=== PATIENT | male | born 1935 | race Caucasian/White ===

== ENCOUNTER → 2023-10-30 09:27 | Outpatient (REF) | payer OTHER, SELFPAY | LOC: HWRCS 09:27 | PROVIDERS: ATTENDING PHYSICIAN Internal Medicine Cardiovascular Disease; FAMILY PHYSICIAN Internal Medicine Geriatric Medicine | DX: R06.02 Shortness of breath (principal) | CPT/HCPCS: 93306 ==

== ENCOUNTER → 2023-11-07 11:01 | Outpatient (REF) | payer OTHER, SELFPAY | LOC: RAD 11:01 | PROVIDERS: ATTENDING PHYSICIAN Internal Medicine Geriatric Medicine; FAMILY PHYSICIAN Internal Medicine Geriatric Medicine; REFERRING PHYSICIAN Surgery Vascular Surgery | DX: G25.81 Restless legs syndrome (principal) | CPT/HCPCS: 93922; 93925 ==

== ENCOUNTER → 2024-08-05 09:25 | Outpatient (REF) | payer OTHER, SELFPAY | LOC: HWRCS 09:25 | PROVIDERS: ATTENDING PHYSICIAN Internal Medicine Cardiovascular Disease; FAMILY PHYSICIAN Internal Medicine Geriatric Medicine | DX: R06.02 Shortness of breath (principal); I31.39 Other pericardial effusion (noninflammatory) | CPT/HCPCS: 93306 ==

== ENCOUNTER → 2024-08-25 14:04 | Outpatient (REF) | payer OTHER, SELFPAY | LOC: HWRAD 14:04 | PROVIDERS: ATTENDING PHYSICIAN Specialist; FAMILY PHYSICIAN Internal Medicine Geriatric Medicine | DX: M25.511 Pain in right shoulder (principal) | CPT/HCPCS: 73200 ==

== ENCOUNTER 2024-08-27 06:11 | Day surgery (SDC) | payer OTHER, SELFPAY ==
--- NOTE | 2024-08-10 13:14 | CM ---
CM reviewed medical records. CM spoke with patient via phone. Patient confirmed demographics. Patient lives independently at [facility] with . Patient has had a history of VN 'many years ago' for home IV antibiotics. Patient has been to
outpatient PT at [facility] for vertigo. Patient plans to use this facility post operatively. Patient is active with his PCP. Patient plans to use [facility] at [facility] for medication services.
Patient will have the support of his and children post operatively.
PLAN: home with family.
[2024-08-17 11:24] LABS: Hematocrit 30.8 % (39.0-52.0); Hemoglobin 10.3 g/dL (13.0-18.0); Mean Corp Hgb Conc. 33.4 g/dL (33.0-37.0); Mean Corpuscular Hgb 33.7 pg (27.0-31.0); Mean Corpuscular Volume 100.7 fL (80.0-94.0); Mean Platelet Volume 9.8 fL (7.4-10.4); Platelet Count 162 10^3/uL (130-400); Red Blood Cell Count 3.06 10^6/uL (4.70-6.10); White Blood Cell Count 4.9 10^3/uL (4.8-10.8)
[2024-08-17 12:11] LABS: ALT (SGPT) 19 U/L (0-50); AST (SGOT) 17 U/L (17-59); Albumin 3.5 g/dl (3.5-5.0); Alkaline Phosphatase 43 U/L (38-126); Blood Urea Nitrogen 24 mg/dl (9-20); Calcium 8.6 mg/dl (8.4-10.2); Carbon Dioxide 23 mmol/L (22-30); Chloride 109 mmol/L (98-107); Glucose 106 mg/dl (70-99); Potassium 4.5 mmol/L (3.5-5.1); Sodium 137 mmol/L (135-145); Total Bilirubin 0.5 mg/dl (0.2-1.3); Total Protein 5.7 g/dl (6.3-8.2); eGFR > 60.00
[2024-08-17 12:24] LABS: Glycohemoglobin (HgbA1c) 5.9 % (4.0-5.6)
[2024-08-17 13:12] LABS: Erythrocyte Sed Rate 16 mm/hour (0-20)
[2024-08-17 13:29] LABS: Iron 103 ug/dl (49-181)
[2024-08-17 13:38] LABS: Percent Saturation 38 % (20-50); Total Iron Binding Capacity 268 ug/dl (261-462)
[2024-08-17 14:09] VITALS: BMI 27.6
[2024-08-17 14:29] LABS: Folate > 20.0 ng/ml (2.76-20); Vitamin B12 365 pg/ml (239-931)
[2024-08-27] VITALS (10 sets, daily range): BP systolic 108–141; BP diastolic 55–93; BMI 27.6
[2024-08-27] MEDS: TYLENOL 1000 MG PO (07:46)
[2024-08-27] MEDS: CELEBREX 200 MG PO (07:47)
[2024-08-27] MEDS: NORMOSOL-R/PLASMALYTE-A 1000 IV (07:47)
[2024-08-27] MEDS: ANCEF 5 IV (13:01)
== END 2024-08-27 13:15 | disposition home or self-care (01) ==
LOC: SDS 06:11
PROVIDERS: ATTENDING PHYSICIAN Specialist; FAMILY PHYSICIAN Internal Medicine Geriatric Medicine; OTHER PHYSICIAN Physician Assistant; REFERRING PHYSICIAN Internal Medicine Cardiovascular Disease
DX: M19.011 Primary osteoarthritis, right shoulder (principal); Z96.611 Presence of right artificial shoulder joint
CPT/HCPCS: 23472; C1776; 36415; 73020; 80053; 82607; 82728; 82746; 83036; 83540; 83550; 85027; 85652; 86850; 86900; 86901; 87070; C1713

== ENCOUNTER → 2024-10-01 16:21 | Outpatient (REF) | payer OTHER, SELFPAY | LOC: RAD 16:21 | PROVIDERS: ATTENDING PHYSICIAN Internal Medicine; FAMILY PHYSICIAN Internal Medicine Geriatric Medicine | DX: R60.0 Localized edema (principal) | CPT/HCPCS: 93970 ==